=== PATIENT | female | born 1960 | race Caucasian/White ===

== ENCOUNTER → 2024-09-14 06:29 | Outpatient (REF) | payer MEDICARE, OTHER, SELFPAY | LOC: HWWDC 06:29 | PROVIDERS: ATTENDING PHYSICIAN Registered Nurse; FAMILY PHYSICIAN Internal Medicine | DX: Z12.31 Encounter for screening mammogram for malignant neoplasm of breast (principal) | CPT/HCPCS: 77063; 77067 ==

== ENCOUNTER → 2024-10-05 12:15 | Outpatient (REF) | payer MEDICARE, OTHER, SELFPAY | LOC: HWRAD 12:15 | DX: Z78.0 Asymptomatic menopausal state (principal) | CPT/HCPCS: 77080 ==

== ENCOUNTER 2024-12-28 06:27 | Day surgery (SDC) | payer MEDICARE, OTHER, SELFPAY | END 2024-12-28 11:29 | disposition home or self-care (01) | LOC: GI 06:27 | PROVIDERS: ATTENDING PHYSICIAN Internal Medicine | DX: D50.9 Iron deficiency anemia, unspecified (principal); K64.8 Other hemorrhoids; K55.20 Angiodysplasia of colon without hemorrhage; K57.30 Diverticulosis of large intestine without perforation or abscess without bleeding; K31.7 Polyp of stomach and duodenum; K31.819 Angiodysplasia of stomach and duodenum without bleeding; K31.89 Other diseases of stomach and duodenum; K29.80 Duodenitis without bleeding; K29.50 Unspecified chronic gastritis without bleeding; Z98.0 Intestinal bypass and anastomosis status | CPT/HCPCS: 43255; 45382; 43239; 88305; 88342 ==